=== PATIENT | female | born 1945 | race Caucasian/White ===

== ENCOUNTER 2020-06-16 08:02 | Emergency (ER) | payer OTHER, MEDICAID, SELFPAY ==
[~2020-06-16] VITALS: Ht 162.6 cm; Wt 59.0 kg
[2020-06-16 08:04] VITALS: Ht 162.6 cm; Wt 59.0 kg
[2020-06-16 09:44] VITALS: BP 149/81
== END 2020-06-16 08:44 | disposition home or self-care (01) ==
LOC: ED 08:02
DX: B34.9 Viral infection, unspecified (principal); Z20.828 Contact with and (suspected) exposure to other viral communicable diseases
CPT/HCPCS: U0003